=== PATIENT | male | born 1990 | race Caucasian/White ===

== ENCOUNTER 2022-01-31 21:46 | Emergency (ER) | payer SELFPAY ==
[~2022-01-31] VITALS: Ht 180.3 cm; Wt 83.0 kg
[2022-01-31] MEDS ORDERED: ACETAMINOPHEN 325MG TABLET PO ONE (22:45)
[2022-01-31] MEDS ORDERED: ONDANSETRON 4MG ODT PO ONE (22:45)
[2022-02-01 02:03] VITALS: BP 100/78
== END 2022-02-01 02:02 | disposition home or self-care (01) ==
LOC: ER 21:46
DX: U07.1 COVID-19 (principal); J45.909 Unspecified asthma, uncomplicated
CPT/HCPCS: 87426; 99283; C9803; Q0162